=== PATIENT | female | born 1950 | race Caucasian/White ===

== ENCOUNTER 2023-07-26 23:47 | Emergency (ER) | payer MEDICARE ==
[~2023-07-26] VITALS: Ht 177.8 cm; Wt 79.8 kg
[2023-07-27 00:31] LABS: BASOPHILS 0.3 % (0-2); EOSINOPHILS 0.2 % (0-6); HEMATOCRIT 39.4 % (35.0-50.0); HEMOGLOBIN 13.2 g/dL (12.0-18.0); LYMPHOCYTES 10.3 % (24-44); MCH 30.4 (27-36); MCHC 33.4 g/dl (30-36); MONOCYTES 4.4 % (0-12); NEUTROPHILS 84.8 % (39-80); PLATELET COUNT 151 K/uL (140-440); RBC 4.33 M/ul (4.3-5.7); RDW 13.3 (10.5-15.0)
[2023-07-27 00:46] LABS: ALBUMIN 3.8 g/dL (3.4-5.0); ALBUMIN/GLOBULIN RATIO 1.15 (1.1-2.4); ANION GAP 14.4 (7-21); BILIRUBIN, TOTAL 0.4 ng/dL (0.2-1.0); BUN/CREATININE RATIO 12.22 (6.0-28.6); CALCIUM 9.5 mg/dL (8.5-10.1); CREATININE, SERUM 0.9 mg/dL (0.55-1.02); POTASSIUM 3.4 mmol/L (3.5-5.1); PROTEIN, TOTAL 7.1 g/dL (6.4-8.2)
[2023-07-27] MEDS ORDERED: LACTULOSE10 GM/15 M PO (01:39)
[2023-07-27 02:28] VITALS: BP 136/85
== END 2023-07-27 02:28 | disposition home or self-care (01) ==
LOC: ED 23:47
PROVIDERS: Family Medicine
DX: K59.00 Constipation, unspecified (principal); Z88.2 Allergy status to sulfonamides
CPT/HCPCS: 36415; 74018; 80053; 85025; 99283-25